=== PATIENT | male | born 2000 | race Caucasian/White ===

== ENCOUNTER 2020-06-12 11:14 | Emergency (ER) | payer OTHER, SELFPAY ==
--- NOTE | ~2020-06-12 | US_ITS ---
EXAMINATION: US SCROTUM CLINICAL INFORMATION: Left testicular pain. Rule out torsion. COMPARISON: None TECHNIQUE: A sonogram of the scrotum was performed assessing cyr-scale appearance and color Doppler flow. Spectral Doppler analysis of the arterial and venous flow were performed in the testes bilaterally. FINDINGS: RIGHT: Right testicle measures 4.0 x 1.9 x 2.7 cm, volume 11.0 mL. No focal testicular parenchymal lesions are visualized. Spectral Doppler analysis of the arterial and venous flow is normal in the right testis. Right epididymal head is normal in size. There is small epididymal head cyst measuring 0.4 x 0.3 x 0.6 cm. No right hydrocele or varicocele is seen. Right epididymal Doppler flow is normal. LEFT: Left testicle measures 4.2 x 1.8 x 2.5 cm, volume 9.8 mL. No focal testicular parenchymal lesions are visualized. Spectral Doppler analysis of the arterial and venous flow is normal in the left testis. Left epididymal head is normal in size. There is a small epidural head cyst measuring 0.3 x 0.2 x 0.2 cm. There is a small left hydrocele. There is no left varicocele seen. Left epididymal Doppler flow is normal. US/US scrotum doppler IMPRESSION: Bilateral epididymal head cysts. The epididymides otherwise are normal in echotexture and normal Doppler flow. Both testes are normal. Small left hydrocele.
--- NOTE | ~2020-06-12 | US_ITS ---
EXAMINATION: US SCROTUM CLINICAL INFORMATION: Left testicular pain. Rule out torsion. COMPARISON: None TECHNIQUE: A sonogram of the scrotum was performed assessing cyr-scale appearance and color Doppler flow. Spectral Doppler analysis of the arterial and venous flow were performed in the testes bilaterally. FINDINGS: RIGHT: Right testicle measures 4.0 x 1.9 x 2.7 cm, volume 11.0 mL. No focal testicular parenchymal lesions are visualized. Spectral Doppler analysis of the arterial and venous flow is normal in the right testis. Right epididymal head is normal in size. There is small epididymal head cyst measuring 0.4 x 0.3 x 0.6 cm. No right hydrocele or varicocele is seen. Right epididymal Doppler flow is normal. LEFT: Left testicle measures 4.2 x 1.8 x 2.5 cm, volume 9.8 mL. No focal testicular parenchymal lesions are visualized. Spectral Doppler analysis of the arterial and venous flow is normal in the left testis. Left epididymal head is normal in size. There is a small epidural head cyst measuring 0.3 x 0.2 x 0.2 cm. There is a small left hydrocele. There is no left varicocele seen. Left epididymal Doppler flow is normal. US/US scrotum IMPRESSION: Bilateral epididymal head cysts. The epididymides otherwise are normal in echotexture and normal Doppler flow. Both testes are normal. Small left hydrocele.
[2020-06-12 11:18] VITALS: BP 146/94; PULSE 123; RESP 18; TEMP 36.7; O2SAT 100; BMI 24.7
--- NOTE | 2020-06-12 12:27 | ED.MALEGU ---
HPI - Male Genitourinary General Chief complaint: Urogenital-Male Stated complaint: STD CHECK Time Seen by Provider: 06/12/20 11:43 Source: patient Mode of arrival: ambulatory Limitations: no limitations History of Present Illness HPI Narrative: 19-year-old male previously healthy here with complaints of intermittent left testicular pain x2 days. No injury or trauma. The patient tells me that sometimes he feels pain in his left lower abdomen which radiates to the left testicle but this is intermittent. He feels like testicle is sore. No penile discharge, urinary symptoms, fevers, chills, nausea, vomiting, back pain. Patient was made that he is not sexually active and therefore is not concerned for STD exposure. He tells me he has not been active for more than 3 years and does not want testing. MD Complaint: testicle pain Onset (ago): day(s) Duration: intermittent Location: left testicle Related Data Allergies Allergy/AdvReac Type Severity Reaction Status Date / Time No Known Allergies Allergy Unverified 01/16/20 17:08 [No Known Allergies*] Review of Systems Review of Systems: Yes all other systems are reviewed and are negative Constitutional: Constitutional: Reports no additional constitutional complaints, Denies body ache(s), Denies chills, Denies fever(s), Denies headache(s) and Denies weakness Eyes: Eyes: Reports no additional eye complaints and Denies change in vision ENT: Reports system reviewed and no additional complaints, except as documented, Denies dizziness, Denies headache(s), Denies nasal congestion, Denies nasal discharge and Denies neck pain Cardiovascular: Cardiovascular: Reports no additional cardiovascular complaints, Denies chest pain, Denies leg edema and Denies dyspnea Respiratory: Respiratory: Reports no additional respiratory complaints, Denies cough and Denies dyspnea Gastrointestinal: Gastrointestinal: Reports no additional gastrointestinal complaints, Denies abdominal pain, Denies diarrhea, Denies nausea and Denies vomiting Genitourinary: Genitourinary: Denies dysuria, Denies flank pain, Denies penile discharge, Denies scrotal swelling, Denies testicular mass, Reports testicular pain, Denies urinary frequency and Denies urinary incontinence Musculoskeletal: Musculoskeletal: Reports no additional musculoskeletal complaints, Denies back pain, Denies arthralgias, Denies joint swelling, Denies neck pain, Denies numbness and Denies tingling Integumentary/Breasts: Skin/Breast: Reports system reviewed and no additional complaints, except as docu and Denies rash Neurologic: Reports system reviewed and no additional complaints, except as documented, Denies Abnormal speech present, Denies dizziness, Denies headache(s), Denies numbness, Denies tingling and Denies weakness PMFSH Past Medical History Attestation statement: The following information was validated with the patient. Source: old records reviewed and nursing notes reviewed Medical History No known health problems Social History Social History Alcohol intake: never Smoked in Last 30 Days: No Use of substances other than those prescribed or required for medical reasons: Yes Substance Use Type: Marijuana Advance Directives: No Advance Directives Information Provided: Yes Physical Exam Vital Signs: Vital Signs: Last Vital Signs Temp 98.1 F 06/12/20 11:18 Pulse 123 H 06/12/20 11:18 Resp 18 06/12/20 11:18 BP 146/94 H 06/12/20 11:18 Pulse Ox 100 06/12/20 11:18 Body Mass Index 24.7 Const: General: cooperative, healthy appearing, comfortable and no acute distress Orientation/consciousness: patient oriented x3 Limitations: no limitations HENMT: Head: Yes normal to inspection Ears: hearing grossly normal bilaterally General nose exam: Normal external nose present Face and sinus: Yes normal facial exam Mouth: Normal oral and palatal mucosa present Throat: Yes posterior oropharynx normal Eyes: General: appearance normal, both eyes and all related structures Pupils: Equal, round and reactive pupils present Neck: Neck: Yes normal visual inspection Chest: Chest palpation & inspection: normal inspection of the chest Resp: Effort & Inspection: normal respiratory effort Auscultation: clear to auscultation bilaterally Cardio: Rate: regular rate Rhythm: regular rhythm Peripheral pulses: Peripheral pulses 2+ throughout GI: Inspection: Yes normal to inspection Palpation (GI): Soft to palpation and Tenderness to palpation present (GI) (mild LLQ, no rebound or guarding) Auscultation: normal bowel sounds : Other: Dann CHEUNG present Male General Exam: Yes normal external exam Penis: normal penis Meatus: meatus normal Scrotum: scrotum normal Testes: no testicular mass, no testicular swelling and testicular tenderness (left, moderate, no abscess/erythema) Back/Spine/Pelvis: Thoracic/Lumbar Spine: thoracic and lumbar spine normal to inspection Skin: General skin exam: no rashes or lesions noted Neuro: General: patient oriented x3, no focal motor deficits and normal sensation to monofilament Cranial nerves: Yes Equal, round and reactive pupils present Cognition (Neuro): normal cognition Speech: No Abnormal speech present Gait exam (Neuro): Normal gait present Motor exam (neuro): 5/5 motor strength present throughout Extrem: General: Yes normal to inspection Course Course Course Narrative: 19-year-old male here with atraumatic intermittent left testicular pain x2 days. No other symptoms. Not concerned for STD as not sexually active. WIll check UA, testicular US. 1445- UA negative. US shows Bilateral epididymal head cysts. The epididymides otherwise are normal in echotexture and normal Doppler flow. Both testes are normal. Small left hydrocele. Discussed findings with the patient. Not likely contributing to symptoms. I did discuss that he may have an intermittent left inguinal hernia or intermittent torsion however ultrasound today shows no evidence of torsion. I recommended he follow-up with urology outpatient. Reviewed worrisome signs and symptoms and when to return to the emergency department. Comfortable with discharge home. Repeat heart rate on discharge improved MDM - Male Genitourinary Medical Records Attestation: I reviewed the patient's medical records. Lab Data Attestation: I reviewed the patient's lab results. Labs: Lab Results 06/12/20 Range/Units 12:47 Urine Color YELLOW Urine Appearance CLEAR Urine pH 6.5 (5.0-8.0) Ur Specific [place] 1.015 (1.005-1.025) Urine Protein NEG (NEG-TRACE) MG/DL Urine Glucose (UA) NEG (NEG) MG/DL Urine Ketones NEG (NEG) MG/DL Urine Blood NEG (NEG) Urine Nitrite NEG (NEG) Ur Leukocyte Esterase NEG (NEG) Urine RBC 0 (0) /HPF Urine WBC 0 (0-4) /HPF Ur Squamous Epith Cells NONE /LPF Urine Bacteria NONE /LPF Imaging Data scrotum US: Attestation: I personally reviewed and interpreted this imaging study as follows: Radiologist's impression: EXAMINATION: US SCROTUM CLINICAL INFORMATION: Left testicular pain. Rule out torsion. COMPARISON: None TECHNIQUE: A sonogram of the scrotum was performed assessing cyr-scale appearance and color Doppler flow. Spectral Doppler analysis of the arterial and venous flow were performed in the testes bilaterally. FINDINGS: RIGHT: Right testicle measures 4.0 x 1.9 x 2.7 cm, volume 11.0 mL. No focal testicular parenchymal lesions are visualized. Spectral Doppler analysis of the arterial and venous flow is normal in the right testis. Right epididymal head is normal in size. There is small epididymal head cyst measuring 0.4 x 0.3 x 0.6 cm. No right hydrocele or varicocele is seen. Right epididymal Doppler flow is normal. LEFT: Left testicle measures 4.2 x 1.8 x 2.5 cm, volume 9.8 mL. No focal testicular parenchymal lesions are visualized. Spectral Doppler analysis of the arterial and venous flow is normal in the left testis. Left epididymal head is normal in size. There is a small epidural head cyst measuring 0.3 x 0.2 x 0.2 cm. There is a small left hydrocele. There is no left varicocele seen. Left epididymal Doppler flow is normal. US/US scrotum doppler IMPRESSION: Bilateral epididymal head cysts. The epididymides otherwise are normal in echotexture and normal Doppler flow. Both testes are normal. Small left hydrocele. Discharge Plan Discharge Clinical Impression: Testicular pain, left Patient Disposition: Home, Self-Care Instructions: Testicle Pain (ED) Additional Instructions: elevation for comfort as needed follow-up with urology as discussed Referrals: David Klein MD [Physician] - 2 days Jimmie Cid MD [Primary Care Provider] - 2 days Interventions: ED Discharge Assessment Last Done: 06/12/20 14:45
[2020-06-12 12:57] LABS: Glucose Urine UA NEG (NEG); Leukocyte Esterase Urine NEG (NEG); Nitrite Urine NEG (NEG); PH 6.5 (5.0-8.0); Specific Gravity - Urine 1.015 (1.005-1.025); Urine Blood NEG (NEG); Urine Ketones NEG (NEG); Urine Protein NEG (NEG-TRACE)
[2020-06-12 13:02] LABS: Appearance Urine CLEAR; Color Urine YELLOW
[2020-06-12 13:22] LABS: RBC Urine 0 /HPF (0); WBC Urine 0 /HPF (0-4)
== END 2020-06-12 14:51 | disposition home or self-care (01) ==
PROVIDERS: Nurse Practitioner Family; Emergency Provider Emergency Medicine Emergency Medical Services; PCP Pediatrics
DX: N50.812 Left testicular pain (principal); N44.2 Benign cyst of testis; N43.3 Hydrocele, unspecified
CPT/HCPCS: 76870; 81001; 93975; 99284

== ENCOUNTER 2020-06-14 22:29 | Emergency (ER) | payer OTHER, SELFPAY ==
[2020-06-14 22:45] VITALS: BP 129/73; PULSE 95; RESP 16; TEMP 36.8; O2SAT 98; BMI 24.0
--- NOTE | 2020-06-14 23:24 | ED_ITS ---
HPI - General Adult General Chief complaint: General Medical Stated complaint: leg issue Time Seen by Provider: 06/14/20 23:16 Source: patient Mode of arrival: ambulatory Limitations: no limitations History of Present Illness HPI narrative: 19-year-old male was seen in the emergency department 2 days ago with testicular pain, patient had ultrasound which showed small bilateral epididymal head cysts (correction to nurse triage note there was no testicular torsion), patient also had UA which was unremarkable, patient was referred to outpatient neurologist. Today patient was trying to take his pants off noticed his legs start to shake and he became anxious (only when he takes his pants off). Patient emergency department appear anxious, no SI, no HI, no hallucination. When patient was asked to take his pants off for testicular exam with distracting the patient with no leg shaking or any symptoms. Related Data Allergies Allergy/AdvReac Type Severity Reaction Status Date / Time No Known Allergies Allergy Unverified 01/16/20 17:08 [No Known Allergies*] Review of Systems Review of Systems: All other systems are reviewed and are negative Constitutional: Reports as per HPI and Reports no additional constitutional complaints Eyes: Reports as per HPI and Reports no additional eye complaints Reports system reviewed and no additional complaints, except as documented Cardiovascular: Reports as per HPI and Reports no additional cardiovascular complaints Respiratory: Reports as per HPI and Reports no additional respiratory complaints Gastrointestinal: Reports as per HPI and Reports no additional gastrointestinal complaints Genitourinary: Reports no additional female genitourinary complaints Musculoskeletal: Reports no additional musculoskeletal complaints Skin/Breast: Reports system reviewed and no additional complaints, except as docu Psychiatric: Reports no additional psychiatric complaints Endocrine: Reports no additional endocrine complaints Hematologic/Lymphatic: Reports no additional hematologic/lymphatic complaints Allergic/Immunologic: Reports no additional allergic/immunologic complaints Reports system reviewed and no additional complaints, except as documented and Reports Abnormal speech present [facility] Past Medical History Medical History No known health problems Social History Social History Alcohol intake: never Substance Use Type: Marijuana Physical Exam Vital Signs: Vital Signs: Last Vital Signs Temp 98.3 F 06/14/20 22:45 Pulse 95 06/14/20 22:45 Resp 16 06/14/20 22:45 BP 129/73 06/14/20 22:45 Pulse Ox 98 06/14/20 22:45 Body Mass Index 24.0 Vital signs have been reviewed as normal and appeared to be correct. Blood pressure normal. Heart rate normal. Respiration rate normal. Temperature normal. Oxygen saturation normal. Appearance: Alert. Oriented X3. No acute distress. Appear anxious. Head: Normal external exam. Normocephalic. Atraumatic. No Gonzalez signs noted. No raccoon eyes noted Eyes: PERRLA. EOMI. Conjunctiva and sclera normal. Eyelids normal. ENT: TM's Normal. Pharynx normal. Uvula midline. Moist mucous membranes. No trismus noted. No drooling noted. No muffled voice noted. Neck: Normal inspection. Neck supple. FROM. No adenopathy. Thyroid Normal. No meningeal signs. No neck mass noted. CVS: Normal heart rate and rhythm. Heart sound normal. No murmurs noted. Pulses normal throughout. Respiratory: No respiratory distress. Painless inspiration. Breath sounds normal . No wheezes/rales/rhonchi noted. Chest nontender. No accessory muscle usage noted or decreased air movement noted. Abdomen: Soft and nontender. Bowel sounds normal in all 4 quadrants. No distention noted. No organomegaly noted. No visible injury noted. : Normal inspection, no discharge, circumcised, no testicular swelling, no tenderness, intact cremasteric reflexes bilaterally. Back: No CVA tenderness. Full range of motion noted. Skin: Skin warm and dry. Normal skin color. Normal skin turgor. No rashes/lesions/lacerations noted. Extremities: No lower extremity edema. Extremities exhibit normal range of motion. Extremities nontender. Neuro: Oriented X 3. No motor deficit. No sensory deficit. Reflexes normal. Course Course Course Narrative: 19-year-old male who seen 2 days ago for testicular pain found to have small epididymal cysts bilaterally patient was instructed to follow up with urologist as an outpatient. Patient described no risk for STD or discharge. Patient described a vague shakiness of his lower extremities when he takes the pants off at home, patient was made to take his pants off for exam no shakiness was noted, patient was instructed to follow up with Urology as was scheduled, patient was reassured that no serious problem is going on with him. Discharge Plan Discharge Clinical Impression: Cyst of epididymis determined by ultrasound, Anxiety Patient Disposition: Home, Self-Care Instructions: Anxiety (ED) Referrals: Jimmie Cid MD [Primary Care Provider] - 2 days
== END 2020-06-14 23:45 | disposition home or self-care (01) ==
LOC: HO.ED 23:42
PROVIDERS: Emergency Provider Emergency Medicine; PCP Pediatrics
DX: N45.1 Epididymitis (principal); N50.819 Testicular pain, unspecified; F41.1 Generalized anxiety disorder; F43.0 Acute stress reaction
CPT/HCPCS: 99283; 99284